=== PATIENT | male | born 1935 | race Two or more races ===

== ENCOUNTER 2019-04-27 22:22 | Emergency (ER) | payer MEDICARE ==
[~2019-04-27] VITALS: Ht 167.6 cm; Wt 72.6 kg
[2019-04-27 22:45] VITALS: BP 173/96
== END 2019-04-28 07:24 | disposition home or self-care (01) ==
LOC: ER 22:24
DX: G50.0 Trigeminal neuralgia (principal); M54.2 Cervicalgia
CPT/HCPCS: 99283; J7030

== ENCOUNTER 2019-05-25 05:03 | Emergency (ER) | payer MEDICARE ==
[~2019-05-25] VITALS: Ht 167.6 cm; Wt 73.5 kg
[2019-05-25] MEDS ORDERED: SODIUM CHLORIDE 0.9% 1,000 ML IV ONE (06:17)
[2019-05-25] MEDS ORDERED: ACETAMINOPHEN 500 MG TAB PO ONE ×2 (06:41→07:00)
[2019-05-25] MEDS ORDERED: ACETAMINOPHEN 325 MG TAB PO ONE (06:45)
[2019-05-25 08:05] LABS: Albumin 4.1 g/dL (3.4-5.0); Anion Gap 8 (5-15); Blood Urea Nitrogen 18 mg/dL (7-18); Carbon Dioxide 27 mmol/L (21-32); Chloride 101 mmol/L (98-107); Glucose 198 mg/dL (74-106); Sodium 136 mmol/L (136-145)
[2019-05-25 08:10] LABS: Alanine Aminotransferase 41 U/L (16-61); Alkaline Phosphatase 124 U/L (45-117); Aspartate Aminotransferase 24 U/L (15-37); BUN/Creatinine Ratio 15.1; Bilirubin, Total 0.5 mg/dL (0.2-1.0); GFR African American 75 mL/min; GFR Non-African American 62 mL/min; Total Protein 7.7 g/dL (6.4-8.2)
[2019-05-25 08:23] LABS: Hematocrit 43.7 % (41.0-53.0); Hemoglobin 14.6 g/dL (13.5-17.5); Mean Corpuscular Hemoglobin 29.9 pg (28.0-32.0); Mean Corpuscular Hgb Conc. 33.3 g/dL (32.0-36.0); Mean Corpuscular Volume 89.8 fL (80.0-100.0); Platelet Count (auto) 150 10^3/uL (140-450); Red Blood Cells 4.87 10^6/uL (4.5-5.90); Red Cell Distribution Width 15.1 % (11.8-14.3); White Blood Cell 20.6 10^3/uL (4.4-10.8)
[2019-05-25 08:31] LABS: INR < 0.93 (0.9-1.15); Partial Thromboplastin Time 28.2 sec (23.64-32.05)
[2019-05-25 08:32] LABS: Basophils % (manual) 0 (0.0-2.0); Blast Cells 0; Eosinophils % (manual) 0 (0-7); Metamyelocytes % 0; Myelocytes % 0; Promyelocytes % 0; Reactive Lymphocytes 0
[2019-05-25 09:01] VITALS: BP 128/76
[2019-05-25 09:06] LABS: Band Neutrophils % (manual) 1; Lymphocytes % (manual) 72 (10.0-50.0); Monocytes % (manual) 3 (0-12)
== END 2019-05-25 09:21 | disposition home or self-care (01) ==
LOC: ER 05:03
DX: J32.9 Chronic sinusitis, unspecified (principal); E11.9 Type 2 diabetes mellitus without complications
CPT/HCPCS: 36415; 70450; 80053; 82962; 84484; 85007; 85027; 85610; 85730